=== PATIENT | male | born 1985 | race Hispanic/Latino ===

== ENCOUNTER 2018-01-08 21:20 | Emergency (ER) | payer OTHER ==
[2018-01-08 21:48] VITALS: BP 122/75; PULSE 88; RESP 16; TEMP 98.5; O2SAT 100
--- NOTE | 2018-01-08 22:02 | ED PDOC ---
Lower Extremity Pain/Injury Time Seen by Provider: 01/08/18 21:51 Chief Complaint (Nursing): Lower Extremity Problem/Injury History Per: Patient Additional Complaint(s): Pt. states earlier today he was playing kickball and he was running towards [address] when he suddenly felt a pop behind his L thigh. Since then he's been unable to straighten the knee out without feeling pain in the hamstring. Denies blunt trauma, numbness, tingling, other injury. Past Medical History Reviewed: Historical Data, Nursing Documentation, Vital Signs Vital Signs: Last Vital Signs Temp 98.5 F 01/08/18 21:44 Pulse 88 01/08/18 21:44 Resp 16 01/08/18 21:44 BP 122/75 01/08/18 21:44 Pulse Ox 100 01/08/18 21:44 - Medical History PMH: Asthma - Surgical History Surgical History: No Surg Hx - Family History Family History: States: No Known Family Hx - Allergies Allergies/Adverse Reactions: Allergies Allergy/AdvReac Type Severity Reaction Status Date / Time No Known Allergies Allergy Verified 01/08/18 21:44 Review of Systems ROS Statement: Except As Marked, All Systems Reviewed And Found Negative Physical Exam - Physical Exam Appears: Positive for: Well, Non-toxic, No Acute Distress Skin: Positive for: Normal Color, Warm. Negative for: Rash Eye Exam: Positive for: Normal appearance Pulses-Dorsalis Pedis (L): 2+ Pulses-Dorsalis Pedis (R): 2+ Extremity: Positive for: Other (Mild tenderness and minimal swelling to proximal posterior thigh; FROM actively of L hip and L knee but with pain). Negative for: Calf Tenderness (b/l) Neurologic/Psych: Positive for: Alert, Oriented (x3) - ECG O2 Sat by Pulse Oximetry: 100 - Radiology X-Ray: Interpreted by Me (L femur x-ray) X-Ray Interpretation: No Acute Disease - Progress ED Course And Treament: Crutches provided. Pt. advised to f/u with ortho for possible MRI of L hamstring. Agrees with plan and care. Disposition - Clinical Impression Clinical Impression: Left hamstring injury - Patient ED Disposition Is Patient to be Admitted: No - Disposition Referrals: [facility] [Outside] Efrain Gomez MD [Staff Provider] - Disposition: Routine/Home Disposition Time: 22:58 Condition: IMPROVED Additional Instructions: PROMISE MARROQUIN, thank you for letting us take care of you today. Your provider was Aster Daily MD and you were treated for LT LEG PAIN. The emergency medical care you received today was directed at your acute symptoms. If you were prescribed any medication, please fill it and take as directed. It may take several days for your symptoms to resolve. Return to the Emergency Department if your symptoms worsen, do not improve, or if you have any other problems. Please contact your doctor or call one of the physicians/clinics you have been referred to that are listed on the Patient Visit Information form that is included in your discharge packet. Bring any paperwork you were given at discharge with you along with any medications you are taking to your follow up visit. Our treatment cannot replace ongoing medical care by a primary care provider outside of the emergency department. Thank you for allowing the [facility] team to be part of your care today. If you had an X-Ray or CT scan: A Radiologist will review the ED reading if any change in treatment is needed we will contact you. If you had a blood, urine, or wound culture: It will take several days for the results, if any change in treatment is needed we will contact you. If you had an STI test: It will take 48 hours for the results. Please call after 1 week if you have not heard back. Instructions: How to Use Crutches, Hamstring Injury Forms: [employer] ([place]), [facility] ED School/Work Excuse Print Language: GUYANESE
--- NOTE | 2018-01-09 08:45 | RAD ---
Date of service: 01/08/2018 PROCEDURE: LEFT FEMUR RADIOGRAPHS HISTORY: trauma COMPARISON: None available. TECHNIQUE: Frontal and lateral views of the left femur have been submitted for interpretation. FINDINGS: No acute fracture or destructive bony lesion identified. Local soft tissues appear diffusely unremarkable. IMPRESSION: No acute fracture or dislocation. No destructive bony lesion appreciable.
== END 2018-01-08 23:10 | disposition home or self-care (01) ==
LOC: H.ER 21:20
DX: S76.312A Strain of muscle, fascia and tendon of the posterior muscle group at thigh level, left thigh, initial encounter (principal); X50.9XXA Other and unspecified overexertion or strenuous movements or postures, initial encounter; Y92.89 Other specified places as the place of occurrence of the external cause